=== PATIENT | female | born 1995 | race Caucasian/White ===

== ENCOUNTER 2016-12-16 21:42 | Emergency (ER) | payer OTHER ==
[2016-12-16] MEDS ORDERED: HYDROcodone/ACETAMIN 5-325 MG* 1 TAB PO ONE ×2 (21:52→22:20)
[2016-12-16 22:03] VITALS: BP 124/82
--- NOTE | 2016-12-16 22:28 | UC ---
Pito Gonzalez Nikita, scribed for Thom Da Silva MD on 12/16/16 at 2154 . Lower Extremity/Ankle HPI - HPI Summary HPI Summary: This patient is a 21 year old F presenting to [facility] with a chief complaint of toe injury since this morning. Pt was walking in her house when she kicked her foot on a couch leg. The 4th toe on the L foot started turning purple. The patient rates the pain 8/10 in severity. Symptoms aggravated by touching. Symptoms alleviated by nothing. Patient reports her heart is racing. Patient denies pain in ankle or foot. The pt taped it but did not put ice on it. PMHx of blood clotting disorder. Pt is on Xarelto. - History of Current Complaint Stated Complaint: TOE INJURY Time Seen by Provider: 12/16/16 21:46 Hx Obtained From: Patient Onset/Duration: Sudden Onset, Lasting Hours - this morning, Still Present Severity Initially: Severe Severity Currently: Severe Pain Intensity: 8 Pain Scale Used: 0-10 Numeric Aggravating Factor(s): Other - touching Alleviating Factor(s): Nothing - Allergies/Home Medications Allergies/Adverse Reactions: Allergies Allergy/AdvReac Type Severity Reaction Status Date / Time Amitriptyline Allergy Rash Verified 12/16/16 21:51 Sulfamethoxazole Allergy Anaphylatic Verified 12/16/16 21:50 w/Trimethoprim Shock [From Bactrim] Home Medications: Home Medications Amphetamine-Dextroamphetamine [Adderall 15 mg] 1 tab PO BID 12/16/16 [History Confirmed 12/16/16] Escitalopram Oxalate [Lexapro 20 mg] 1 tab PO DAILY 12/16/16 [History Confirmed 12/16/16] Rivaroxaban TAB(*) [Xarelto 20 mg] 1 tab PO DAILY 12/16/16 [History Confirmed ] PMH/Surg Hx/FS Hx/Imm Hx Previously Healthy: 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 Pt denies pain in ankle or foot. All Other Systems Reviewed And Are Negative: Yes Physical Exam Triage Information Reviewed: Yes Vital Signs: Initial Vital Signs Temp 98.7 F 12/16/16 21:48 Pulse 114 12/16/16 21:48 BP 124/82 12/16/16 21:48 Pulse Ox 97 12/16/16 21:48 - Additional Comments Respiratory: Lungs are clear. Cardiovascular: Heart is regular rate and rhythm. Good distal pulses. Musculoskeletal: Non-tender left lower extremities, non-tender in L leg, ankle, heel, or 5th metatarsal of L leg. Tenderness in 4th metatarsal of L leg. Pain in the 5th and 4th metatarsal, mostly in the proximal aspect. Non-tender in other toes. Diagnostics - Radiology Foot XR Radiology Interpretation Completed By: ED Physician - No evidence of fracture. Re-Evaluation - Re-Evaluation First Eval Re-Evaluation Time: 22:17 Comment: Discussed pt about pain medication. Discussed discharge plan. Lower Extremity Course/Dx - Course Course Of Treatment: This patient is a 21 year old F presenting to [facility] with a chief complaint of toe injury since this morning. Pt was walking in her house when she kicked her foot on a couch leg. The 4th toe on the L foot started turning purple. Symptoms aggravated by touching. Symptoms alleviated by nothing. Patient reports her heart is racing. Patient denies pain in ankle or foot. The pt taped it but did not put ice on it. PMHx of blood clotting disorder. Pt is on Xarelto. Foot XR reveals no evidence of fracture as read by [facility] physician. Pt will be discharged with follow up with Dr. Rohan Schaefer. Pt is agreeable with this plan. - Differential Dx/Diagnosis Differential Diagnosis/HQI/PQRI: Contusion, Fracture (Closed), Sprain, Strain Provider Diagnoses: Contusion of L foot. Discharge - Discharge Plan Condition: Stable Disposition: HOME Prescriptions: HYDROcodone/ACETAMIN 5-325 MG* [[place] 5-325 TAB*] 1 tab PO Q6H PRN #15 tab MDD 4 PRN Reason: Pain Patient Education Materials: Contusion in Adults (ED) Referrals: Rohan Schaefer MD [Medical Doctor] - 3 Days Additional Instructions: Ice and elevate foot. The documentation as recorded by the Pito jansen Nikita accurately reflects the service I personally performed and the decisions made by me, Thom Da Silva MD.
--- NOTE | 2016-12-17 07:52 | RAD ---
Indication: Left fourth toe injury. 3 views of left fourth toe demonstrates no fracture. No other bone or joint abnormality is identified. Joint spaces are well-preserved. IMPRESSION: No fracture of the left foot is noted.
== END 2016-12-16 22:38 | disposition home or self-care (01) ==
LOC: UCEAST 21:42
DX: S90.32XA Contusion of left foot, initial encounter (principal); W22.03XA Walked into furniture, initial encounter; Y93.9 Activity, unspecified; Y92.9 Unspecified place or not applicable; Z86.711 Personal history of pulmonary embolism; Z79.01 Long term (current) use of anticoagulants; F90.9 Attention-deficit hyperactivity disorder, unspecified type; F41.9 Anxiety disorder, unspecified; D68.52 Prothrombin gene mutation; Z88.2 Allergy status to sulfonamides; Z88.8 Allergy status to other drugs, medicaments and biological substances
CPT/HCPCS: 99203; G0463

== ENCOUNTER 2016-12-21 18:33 | Emergency (ER) | payer OTHER ==
[2016-12-21 18:39] VITALS: BP 118/83
[2016-12-21] MEDS ORDERED: SUMAtriptan SQ* 6 MG/0.5 ML VIAL SUBCUT ONE (19:13)
--- NOTE | 2016-12-21 19:20 | UC ---
Headache HPI - HPI Summary HPI Summary: PT WITH H/O MIGRAINE GUEVARA PRESENTS WITH PERSISTANT MIGRAINE ALL DAY TODAY. STARTED MENSES TODAY AND PT REPORTS MENSTRUATION OFTEN WILL TRIGGER HER MIGRAINES. IS REQUESTING SUMATRIPTAN STATING THIS ALWAYS WORKS FOR HER. SHE IS OUT OF HER RX AND HAS HER INITIAL PCP APPT AT [place] IN 2 DAYS. JUST MOVED HERE FROM [place]. GUEVARA IS LOCATED BILATERAL TEMPLES. IS THROBBING AND ASSOCIATED WITH PHOTOPHOBIA AND PHONOPHOBIA AND MILD NAUSEA. - History Of Current Complaint Chief Complaint: UCHeadache Stated Complaint: VOMITING, AND HEADACHE Time Seen by Provider: 12/21/16 18:55 Hx Obtained From: Patient Hx Last Menstrual Period: 12/21/16 Onset/Duration: Gradual Onset, Lasting Hours, Still Present Onset Of Symptoms: Gradual Pain Intensity: 10 Pain Scale Used: 0-10 Numeric Character: Throbbing Location of Headache: Temporal Aggravating Factor: Bright Lights Allevating Factors: Nothing Associated Signs And Symptoms: Positive: Nausea - Allergies/Home Medications Allergies/Adverse Reactions: Allergies Allergy/AdvReac Type Severity Reaction Status Date / Time Amitriptyline Allergy Rash Verified 12/16/16 21:51 Sulfamethoxazole Allergy Anaphylatic Verified 12/16/16 21:50 w/Trimethoprim Shock [From Bactrim] Home Medications: Home Medications Bfljyyl-Blfuoczibghvw-Zlhgpnep [Excedrin Extra Strength 250-250-65 mg] 1 tab PO 12/21/16 [History] PMH/Surg Hx/FS Hx/Imm Hx Respiratory History: Pulmonary Embolism - h/o prothrombin gene mutation Neurological History: Migraine Psychological History: Anxiety Other Psychological History: ADHD - Surgical History Surgical History: Yes Surgery Procedure, Year, and Place: IVC filter 08/2014 - Family History Known Family History: Negative: Cardiac Disease, Diabetes Family History: HLD - Social History Alcohol Use: None Substance Use Type: Marijuana Substance Use Comment - Amount & Last Used: daily Smoking Status (MU): Never Smoked Tobacco Review of Systems Constitutional: Negative Eyes: Photophobia Respiratory: Negative Cardiovascular: Negative Gastrointestinal: Nausea Neurological: Headache All Other Systems Reviewed And Are Negative: Yes Physical Exam Triage Information Reviewed: Yes Appearance: Well-Appearing, Well-Nourished, Pain Distress - MOD Vital Signs: Initial Vital Signs Temp 96.5 F 12/21/16 18:36 Pulse 80 12/21/16 18:36 Resp 18 12/21/16 18:36 BP 118/83 12/21/16 18:36 Pulse Ox 100 12/21/16 18:36 Eyes: Positive: Conjunctiva Clear ENT: Positive: Hearing grossly normal Neck: Positive: Supple Respiratory: Positive: No respiratory distress, No accessory muscle use Cardiovascular: Positive: Pulses Normal Abdomen Description: Positive: Soft Musculoskeletal: Positive: No Edema Neurological: Positive: Alert Psychological: Positive: Age Appropriate Behavior Skin: Negative: rashes Re-Evaluation - Re-Evaluation First Eval Re-Evaluation Time: 19:42 - GUEVARA MUCH BETTER AFTER SUMATRIPTAN SC. WANTS TO GO HOME Change: Improved Headache Course/Dx - Differential Dx/Diagnosis Provider Diagnoses: MIGRAINE GUEVARA Discharge - Discharge Plan Condition: Stable Disposition: HOME Prescriptions: SUMAtriptan TAB* [Imitrex TAB*] 100 mg PO SEE INSTRUCTIONS #10 tab Patient Education Materials: Migraine Headache (ED) Referrals: No Primary Care Phys,NOPCP [Primary Care Provider] - Additional Instructions: YOU RECEIVED 6MG SUMATRIPTAN SUBCUTANEOUSLY TODAY WITH IMPROVEMENT. KEEP YOUR FOLLOW-UP WITH ROBERT IN 2 DAYS. REST, HYDRATE.
== END 2016-12-21 19:49 | disposition home or self-care (01) ==
LOC: UCEAST 18:33
DX: G43.909 Migraine, unspecified, not intractable, without status migrainosus (principal); F41.9 Anxiety disorder, unspecified; F90.9 Attention-deficit hyperactivity disorder, unspecified type; Z86.711 Personal history of pulmonary embolism; Z88.2 Allergy status to sulfonamides
CPT/HCPCS: 96372; 99212; G0463; J3030

== ENCOUNTER → 2016-12-27 15:59 | Emergency (ER) | payer OTHER ==
[~2016-12-27 15:59] MED LIST: SUMAtriptan SQ* 6 MG/0.5 ML VIAL SUBCUT ONE
[2016-12-27 17:25] VITALS: BP 86/48
--- NOTE | 2016-12-27 18:30 | ED ---
Deandre Gonzalez Benjamin, scribed for Brendan Randle MD on 12/27/16 at 1721 . Headache - HPI Summary HPI Summary: 21yo female c/o right-sided migraine like GUEVARA and vomiting. Pt was unable to take her migraine meds orally due to vomiting. Pt denies any neurological deficits. Her migraines are light and noise sensitive. Pt has hx of migraine since 7 years old, also hx of ADHD and Terettes syndrome. Pt wants subQ imitrex. Her headache onset was this morning, pain is 9/10, right side of her head. The headache is typical of her migraine headache. She denies neck stiffness, fever or chills. She states she needs an imitrex injection. - History Of Current Complaint Chief Complaint: EDHeadache Stated Complaint: HEADACHE Time Seen by Provider: 12/27/16 16:53 Hx Obtained From: Patient Hx Last Menstrual Period: 12/21/16 Onset/Duration: Gradual Onset, Started hours ago, Still Present Initially Headache Was: Moderate Currently Pain Is: Moderate Timing: Constant Character: Migraine Location of Headache: Temporal - right, Parietal - right Aggravating Factor: Bright Lights Allevating Factors: Other (Noted In Comments) - dark Associated Signs And Symptoms: Negative - Allergies/Home Medications Allergies/Adverse Reactions: Allergies Allergy/AdvReac Type Severity Reaction Status Date / Time Amitriptyline Allergy Rash Verified 12/27/16 16:16 Sulfamethoxazole Allergy Anaphylatic Verified 12/27/16 16:16 w/Trimethoprim Shock [From Bactrim] PMH/Surg Hx/FS Hx/Imm Hx Endocrine/Hematology History: Denies: Hx Diabetes, Hx Thyroid Disease Cardiovascular History: Denies: Hx Hypertension Respiratory History: Denies: Hx Asthma, Hx Chronic Obstructive Pulmonary Disease (COPD) GI History: Denies: Hx Ulcer Neurological History: Reports: Hx Migraine Psychiatric History: Reports: Hx Attention Deficit Hyperactivity Disorder - Surgical History Surgery Procedure, Year, and Place: IVC filter 08/2014 Infectious Disease History: Denies: Hx Hepatitis, Hx Human Immunodeficiency Virus (HIV), History Other Infectious Disease, Traveled Outside the [place] in Last 30 Days - Family History Known Family History: Negative: Cardiac Disease, Diabetes Family History: HLD - Social History Occupation: Unemployed Lives: Dormitory/Roommates - roommate Alcohol Use: None Substance Use Type: Reports: Marijuana Substance Use Comment - Amount & Last Used: daily Smoking Status (MU): Never Smoked Tobacco Review of Systems Constitutional: Negative Positive: Photophobia ENT: Negative Cardiovascular: Negative Respiratory: Negative Gastrointestinal: Negative Genitourinary: Negative Positive: no symptoms reported Musculoskeletal: Negative Skin: Negative Positive: Headache - right sided migraine like GUEVARA Psychological: Normal All Other Systems Reviewed And Are Negative: Yes Physical Exam Triage Information Reviewed: Yes Vital Signs On Initial Exam: Initial Vitals Temp Pulse Resp BP Pulse Ox 98.5 F 83 16 113/74 96 12/27/16 16:18 12/27/16 16:18 12/27/16 16:18 12/27/16 16:18 12/27/16 16:18 Appearance: Positive: Ill-Appearing - from nausea, Pain Distress Skin: Positive: Warm, Skin Color Reflects Adequate Perfusion Head/Face: Positive: Normal Head/Face Inspection Eyes: Positive: EOMI, SUHA ENT: Positive: Normal ENT inspection Neck: Positive: Nontender. Negative: Nuchal Rigidity Respiratory/Lung Sounds: Positive: Clear to Auscultation, Breath Sounds Present Cardiovascular: Positive: RRR. Negative: Murmur Abdomen Description: Positive: Nontender Musculoskeletal: Positive: Strength/ROM Intact Neurological: Positive: Normal, Sensory/Motor Intact, Alert, Oriented to Person Place, Time, CN Intact II-III, Finger to Nose - normal, Speech Normal - José Miguel Coma Scale Best Eye Response: 4 - Spontaneous Best Motor Response: 6 - Obeys Commands Best Verbal Response: 5 - Oriented Coma Scale Total: 15 Diagnostics - Vital Signs Vital Signs Temp Pulse Resp BP Pulse Ox 12/27/16 16:18 98.5 F 83 16 113/74 96 - Laboratory Lab Statement: Any lab studies that have been ordered have been reviewed, and results considered in the medical decision making process. Re-Evaluation - Re-Evaluation First Eval Re-Evaluation Time: 18:27 Change: Improved Comment: reports relief of headache and would like to go home Headache Course/Dx - Course Course Of Treatment: Reviewed pts medication and allergy lists. Blood pressure noted. patient with migraine resoved with immitrex. DC home. - Diagnoses Provider Diagnoses: Migraine Discharge - Discharge Plan Condition: Good Disposition: HOME Patient Education Materials: Migraine Headache (ED) Referrals: No Primary Care Phys,NOPCP [Primary Care Provider] - [facility] [Outside] The documentation as recorded by the Deandre jansen Benjamin accurately reflects the service I personally performed and the decisions made by me, Brendan Randle MD.
== END | disposition home or self-care (01) ==
LOC: ED 15:59
DX: G43.909 Migraine, unspecified, not intractable, without status migrainosus (principal); F90.9 Attention-deficit hyperactivity disorder, unspecified type; Z88.2 Allergy status to sulfonamides
CPT/HCPCS: 96372; 99282; J3030